=== PATIENT | male | born 1975 | race Caucasian/White ===

== ENCOUNTER 2016-12-13 07:12 | Emergency (ER) | payer OTHER ==
--- NOTE | 2016-12-13 07:21 | PDOC ---
*Physical Exam - Vital Signs Last Vital Signs Temp Pulse Resp BP Pulse Ox 98.8 F 97 H 18 129/74 100 12/13/16 07:15 12/13/16 07:15 12/13/16 07:15 12/13/16 07:15 12/13/16 07:15 - Physical Exam Comments: 12/13/16 07:22 Pt seen by the Advanced Practice Provider under my direct supervision Pt interviewed and examined He states that he was struck in the left elbow accidentally with a hammer yesterday, and that he was asymptomatic after the injury, to the degree where he was able to play pool This morning, however, he states that he felt a "pop" and now he has a limited in his range of motion He denies distal weakness or paresthesias 12/13/16 07:51 X-ray emergency Department interpretation: No evidence of fracture or dislocation I agree with plan as outlined by the Advanced Practice Provider *DC/Admit/Observation/Transfer Diagnosis at time of Disposition: Elbow pain, left - Discharge Dispostion Disposition: HOME Condition at time of disposition: Stable - Referrals Referrals: Ayo Veliz MD [Staff Physician] - - Patient Instructions Printed Discharge Instructions: DI for Elbow Pain Additional Instructions: Your x-ray shows no evidence of broken bones or a dislocation. You may take ibuprofen or Tylenol as needed for pain. You may use ice to the effected area to help reduce the swelling. You were given a sling for comfort. Wear the sling until you can see an orthopedic doctor. There is a referral in your discharge packet. Return to the ED if you have worsening pain, cannot move the arm, or have any changes in your symptoms.
[2016-12-13 07:32] VITALS: BP 129/74; PULSE 97; TEMP 98.8; BMI 30.2
--- NOTE | 2016-12-13 07:45 | PDOC ---
History of Present Illness - General Chief Complaint: Pain, Acute Stated Complaint: HIT WITH HAMMER LEFT ELBOW Time Seen by Provider: 12/13/16 07:15 History Source: Patient - History of Present Illness Initial Comments: 12/13/16 08:12 Patient is a 41-year-old male who presents to emergency department today complaining of left elbow pain. Patient states that he was working on a friend' s house yesterday when he accidentally got hit with a hammer. Patient states that after he got hit he initially felt fine. He was able to play pool yesterday. Patient states that this morning around 3 AM he felt a click and heard a pop. Since then he states he is had 8 out of 10 pain in the left elbow. Denies numbness, tingling, and weakness to the arm. Past History - Past Medical History Allergies/Adverse Reactions: Allergies Allergy/AdvReac Type Severity Reaction Status Date / Time No Known Allergies Allergy Verified 12/13/16 07:14 Home Medications: Ambulatory Orders Unobtainable [Unobtainable] 12/13/16 Diabetes: Yes HTN: Yes Hypercholesterolemia: Yes - Psycho/Social/Smoking Cessation Hx Anxiety: No Suicidal Ideation: No Smoking History: Former smoker Have you smoked in the past 12 months: No If you are a former smoker, when did you quit?: 23 YEARS Information on smoking cessation initiated: No Hx Alcohol Use: Yes Drug/Substance Use Hx: No Substance Use Type: None Review of Systems - Review of Systems Able to Perform ROS?: Yes Is the patient limited Khmer proficient: No Constitutional: No: Chills, Fever, Malaise, Weakness Musculoskeletal: Yes: Joint Pain (L elbow), Joint Swelling (L elbow) Integumentary: No: Bruising Neurological: No: Numbness, Tingling, Weakness All Other Systems: Reviewed and Negative *Physical Exam - Vital Signs Last Vital Signs Temp Pulse Resp BP Pulse Ox 98.8 F 97 H 18 129/74 100 12/13/16 07:15 12/13/16 07:15 12/13/16 07:15 12/13/16 07:15 12/13/16 07:15 - Physical Exam General Appearance: Yes: Nourished, Appropriately Dressed, Mild Distress ( holding L elbow) Extremity: positive: Normal Capillary Refill, Normal Range of Motion (With pain for flexion), Tender (TTP of L lateral elbow. ), Swelling (L lateral elbow), Other (Strength 5/5 R arm, 4/5 L arm; b/l radial pulses 2+ and sensation grossly intact). negative: Coldness, Erythema Integumentary: positive: Normal Color, Dry, Warm. negative: Ecchymosis, Bruising Neurologic: positive: juvenile detention officer II-XII NML intact, Fully Oriented, Alert, Normal Mood/ Affect, Normal Response, Motor Strength 5/5 Medical Decision Making - Medical Decision Making 12/13/16 07:43 Patient is a 41-year-old male who is complaining of left elbow pain after being hit with a hammer. There is some swelling to the left lateral elbow we'll obtain x-ray at this time to rule out fracture or dislocation. We will give ibuprofen for pain and reevaluate. 12/13/16 08:23 X-ray shows no acute pathology. Soft tissue swelling around the left lateral elbow. No sail sign. We'll discharge home at this time with an Manny wrap for support. Patient to take ibuprofen as needed for pain. Instructed patient to follow up with orthopedics if he has persistent pain patient understands all discharge instructions and all questions were answered at this time. *DC/Admit/Observation/Transfer Diagnosis at time of Disposition: Elbow pain, left - Discharge Dispostion Disposition: HOME Condition at time of disposition: Stable Admit: No - Referrals Referrals: Ayo Veliz MD [Staff Physician] - - Patient Instructions Printed Discharge Instructions: DI for Elbow Pain Additional Instructions: Your x-ray shows no evidence of broken bones or a dislocation. You may take ibuprofen or Tylenol as needed for pain. You may use ice to the effected area to help reduce the swelling. You were given a sling for comfort. Wear the sling until you can see an orthopedic doctor. There is a referral in your discharge packet. Return to the ED if you have worsening pain, cannot move the arm, or have any changes in your symptoms.
[2016-12-13] MEDS ORDERED: IBUPROFEN 400 MG TABLET (FP) PO ONE ×2 (07:56→08:05)
== END 2016-12-13 08:36 | disposition home or self-care (01) ==
LOC: FER 07:12
DX: M25.522 Pain in left elbow (principal); W20.8XXA Other cause of strike by thrown, projected or falling object, initial encounter; Y93.89 Activity, other specified; Y92.9 Unspecified place or not applicable; Y99.0 Civilian activity done for income or pay; Z87.891 Personal history of nicotine dependence; E11.9 Type 2 diabetes mellitus without complications; I10 Essential (primary) hypertension; E78.00 Pure hypercholesterolemia, unspecified
CPT/HCPCS: 73070-TC-LT; 99281-25